=== PATIENT | male | born 1935 | race Caucasian/White ===

== ENCOUNTER → 2016-06-04 | Outpatient (CLI) | payer OTHER, BC ==
--- NOTE | 2016-06-04 15:51 | DX ---
Chest, PA and Lateral History: Follow-up pneumonia, Z87.09, Interstitial lung disease. Comparison: August 30, 2013 and May 29, 2015 Findings: Upper lobe peripheral scarring and a few small noncalcified nodules associated with superio r hilar retraction are not significantly changed since 2013 and may indicate endstage sarcoidosis or findings related to previous granulomatous disease. Patchy density at the medial left base persists b ut is new since 2013. There is left carotid bifurcation atherosclerotic calcification. Impression: 1. Persistent small density at the left base. Sarcoidosis?. . Results called to Dr. Hansen, as requested.
== END ==
LOC: FIMAGING 15:08
PROVIDERS: ATTEND Family Medicine
DX: J18.9 Pneumonia, unspecified organism (principal); Z87.09 Personal history of other diseases of the respiratory system; R41.0 Disorientation, unspecified

== ENCOUNTER 2016-09-25 14:26 | Emergency (ER) | payer OTHER, BC ==
--- NOTE | 2016-09-25 17:26 | EDPHY ---
H & P Stated Complaint: tripped /fell on landing/hit face on corner post/denies loc and neck pain - Personal History Current Tetanus/Diphtheria Vaccine: Yes - Medical/Surgical History Hx Asthma: No Hx Chronic Respiratory Disease: Yes Hx Diabetes: No Hx Cardiac Disease: No Hx Renal Disease: No Hx Cirrhosis: No Hx Alcoholism: No Hx HIV/AIDS: No Hx Splenectomy or Spleen Trauma: No Other PMH: glucoma, macular degentertive disease, sleep apnea/02 at night,low NA. Terry's disease/dementia - Social History Smoking Status: Never smoked Time Seen by Provider: 09/25/16 17:17 HPI/ROS: CHIEF COMPLAINT: Head injury HISTORY OF PRESENT ILLNESS: 80-year-old male history of advanced dementia arrives via private vehicle with his with whom he lives. She states that this morning he was walking up the stairs, tripped and impacted the right forehead and right cheek against the corner of the wall. No loss of consciousness. He has been acting at his baseline ever since however they came to the ER for evaluation. No nausea or vomiting. No no midline C-spine pain. No peripheral paresthesia, weakness, numbness. Tetanus up-to-date. No ocular complaints. This was a purely mechanical non syncopal episode PRIMARY CARE PROVIDER: Dr. David Lane REVIEW OF SYSTEMS: A ten point review of systems was performed and is negative with the exception of the items mentioned in the HPI PAST MEDICAL/SURGICAL HISTORY: no anticoagulant use, advanced dementia, lives with SOCIAL HISTORY: Lives with . feels capable of caring for him PHYSICAL EXAM 1) GENERAL: Well-developed, well-nourished, alert , comp Appears to be in no acute distress. . 2) HEAD: Normocephalic, right lateral eye in eyebrow region superficial skin abrasion and skin avulsion. 3) HEENT: Pupils equal, round, reactive to light bilaterally. Negative Horners. Nasopharynx, oropharynx, clear. Abrasion to right infraorbital region. No facial crepitus. No deformity or angulation of nose. No septal hematoma. No rhinorrhea. No oral trauma. Ears bilaterally with normal tympanic membranes. No hemotympanum. No fluid or blood in the external auditory canal. No raccoon eyes. No Lux sign. Teeth are normally aligned with no gross malocclusion, TMJ bilaterally nontender, facial bones nontender including the zygomatic arch, maxilla mandible. 4) NECK: No cervical collar is on. Posterior cervical spine is nontender, no stepoff, no effusion. Full range of motion which does not elicit any midline cervical spine pain, no posterior midline tenderness, no step-off. 5) LUNGS: Clear to auscultation bilaterally, no wheezes, no rhonchi, no retractions. No obvious signs of trauma. No chest wall pain. No flaring, no grunting. Moving symmetrically. No crepitus. 6) HEART: Regular rate and rhythm, 7) ABDOMEN: No guarding, no rebound, no focal tenderness, no peritoneal signs, no signs of trauma, no ecchymosis 8) MUSCULOSKELETAL: Moving all extremities, no focal areas of tenderness, no obvious trauma. 9) BACK: No midline vertebral tenderness, no fluctuance, no step-off, no obvious trauma, no visual or palpable abnormality. 10) SKIN: No laceration. DIFFERENTIAL DIAGNOSIS:Not necessarily in any particular order, my differential diagnosis includes, but is not limited to, concussion, skull fracture, intraparenchymal contusion, subarachnoid, subdural and epidural hematoma. The patient understands that this diagnosis is provisional and can never be 100% accurate. (Pramod Marks) Constitutional: Initial Vital Signs Temperature (C) 36.3 C 09/25/16 14:32 Heart Rate 67 09/25/16 14:32 Respiratory Rate 18 09/25/16 14:32 Blood Pressure 128/75 H 09/25/16 14:32 O2 Sat (%) 96 09/25/16 14:32 O2 Delivery Mode Room Air Allergies/Adverse Reactions: Sulfa (Sulfonamide Antibiotics) Allergy (Verified 09/25/16 14:28) Home Medications: Medication Instructions Recorded Aspirin 81mg (OTC) 07/12/14 FLUTICASONE PROPIONATE 07/12/14 Latanoprost 0.005% 07/12/14 Timolol 0.5% 07/12/14 Advair 100/50 (*) 09/25/16 Namenda 10 mg 09/25/16 UREA 09/25/16 Medical Decision Making - Diagnostics Imaging Results: Imaging Impressions Cervical Spine CT 09/25/16 17:22 Impression: 1. No acute fracture or soft tissue swelling. 2. If the patient has persistent pain or neurologic deficits, consider cervical spine MRI. Findings discussed with Emergency Department physician habilitation assistant, Adilson Marks PA-C, on September 25, [address] 09/25/16 17:22 Impression: 1. No acute fracture or evidence of acute intracranial injury. 2. Minimal right periorbital soft tissue swelling. 3. Atrophy and white matter disease. Findings discussed with Emergency Department Physician Senior Housekeeper, Adilson Marks PA-C, on September 25, 2016 at 1759 hours. Images reviewed by myself (Pramod Marks) ED Course/Re-evaluation: 5:[address] ordered in this little patient for trauma for the following indication age greater than 65 years old and history of dementia. 6:01 p.m.: CT imaging of the head and cervical spine are negative for posttraumatic sequelae per Radiology interpretation 6:03 p.m.: Patient was re-evaluated, he is mentating at his baseline according to his . The feels comfortable taking the patient home and feels comfortable caring for him. Usual and customary head injury precautions and instructions provided. Care and management in consultation with secondary supervising physician Dr Diaz (Pramod Marks) Other Provider: The patient was evaluated and managed by the physician habilitation assistant. I have reviewed this chart and I agree with the findings and plan of care as documented , as indicated by my signature. I am the secondary supervising physician. ( Jeannette Diaz) Departure - Departure Disposition: Home, Routine, Self-Care Clinical Impression: History of dementia Head injury due to trauma Qualifiers: Encounter type: initial encounter Qualified Code(s): S09.90XA - Unspecified injury of head, initial encounter Condition: Good Instructions: Dementia (ED), Fall Prevention for Older Adults (ED) Additional Instructions: ALTHOUGH THERE IS NO EVIDENCE OF SERIOUS HEAD INJURY AT THIS TIME, DELAYED SIGNS CAN APPEAR 24 TO 48 HOURS AFTER INJURY. WE RECOMMEND THAT YOU DESIGNATE A FRIEND OR FAMILY MEMBER TO OBSERVE YOU OVER THE NEXT FEW DAYS TO ENSURE THAT YOUR CONDITION IS PROGRESSING NORMALLY. PLEASE RETURN TO THE EMERGENCY DEPARTMENT (ED) IMMEDIATELY IF YOU HAVE INCREASED HEADACHE, PERSISTENT HEADACHE , VOMITING, WEAKNESS, CONFUSION OR VISUAL PROBLEMS. Referrals: David Lane MD [Primary Care Provider] - 1 day without fail
[2016-09-25 18:25] VITALS: BP 166/91; PULSE 72; RESP 16; TEMP 97.9; O2SAT 99
== END 2016-09-25 18:30 | disposition home or self-care (01) ==
DX: S09.90XA Unspecified injury of head, initial encounter (principal); Z79.01 Long term (current) use of anticoagulants; Z86.59 Personal history of other mental and behavioral disorders; W01.198A Fall on same level from slipping, tripping and stumbling with subsequent striking against other object, initial encounter; Y99.8 Other external cause status; Y93.01 Activity, walking, marching and hiking